=== PATIENT | male | born 1985 | race Caucasian/White ===

== ENCOUNTER 2022-02-01 11:58 | Emergency (ER) | payer BC ==
[2022-02-01] MEDS ORDERED: Sodium Chloride 0.9% 1,000 ML IV ONE (11:59)
[2022-02-01] MEDS ORDERED: Acetaminophen 500 MG Tab PO ONE (12:00)
[2022-02-01 14:02] LABS: BLOOD UREA NITROGEN,BUN 20 mg/dL (7.0-18.0); CARBON DIOXIDE,CO2 23.4 mmol/L (21.0-32.0); CHLORIDE,CL 107 mmol/L (98-107); GLUCOSE RANDOM 105 mg/dL (74-106); SODIUM,NA 139 mmol/L (136-148)
[2022-02-01 14:03] LABS: ESTIMATED GFR > 60.0 ml/min
== END 2022-02-01 14:13 | disposition home or self-care (01) ==
LOC: MW.ED 11:58
DX: R56.9 Unspecified convulsions (principal)
CPT/HCPCS: 36415; 70450; 80053; 83605; 83735; 84443; 84484; 85025; 93005; 99285; A9270; J7030; 93010; 99284